=== PATIENT | female | born 1945 | race Hispanic/Latino ===

== ENCOUNTER → 2023-07-06 | Outpatient (CLI) | payer MEDICARE, OTHER | END | disposition home or self-care (01) | LOC: RAH 11:47 | PROVIDERS: ATTEND Student in an Organized Health Care Education/Training Program | DX: R60.9 Edema, unspecified (principal) | CPT/HCPCS: 73610 ==

== ENCOUNTER → 2023-11-30 | Outpatient (CLI) | payer OTHER | END | disposition home or self-care (01) | LOC: RAH 13:54 | PROVIDERS: ATTEND Internal Medicine Cardiovascular Disease | DX: Z13.6 Encounter for screening for cardiovascular disorders (principal) | CPT/HCPCS: 75571 ==

== ENCOUNTER → 2023-12-13 | Outpatient (CLI) | payer MEDICARE, OTHER ==
[2023-12-13] MEDS: REGADENOSON 0.4 MG/5 ML PF SYG IVP ONE (12:32)
== END | disposition home or self-care (01) ==
LOC: SHCH 09:15
PROVIDERS: ATTEND Internal Medicine Cardiovascular Disease
DX: I25.10 Atherosclerotic heart disease of native coronary artery without angina pectoris (principal)
CPT/HCPCS: 78452; 96374; 93017; J2785; A9500 ×2